=== PATIENT | female | born 1930 | race Caucasian/White ===

== ENCOUNTER 2017-01-16 17:02 | Emergency (ER) | payer MEDICARE ==
[~2017-01-16] VITALS: Ht 152.4 cm; Wt 65.0 kg
[2017-01-16 17:44] LABS: HEMATOCRIT 36.3 % (37.0-47.0); HEMOGLOBIN 11.8 g/dl (12.0-16.0); IMMATURE GRANULOCYTES 0.3 % (0.0-1.0); MEAN CELL VOLUME 93.1 fL CALC (80.0-100.0); MEAN CORPUSCULAR HGB 30.3 pG CALC (26.0-32.0); MEAN CORPUSCULAR HGB CONC 32.5 g/L CALC (32.0-36.0); NEUT# 4.08 thou/uL (2.00-7.15); RED BLOOD COUNT 3.9 mill/uL (4.20-5.60); RED CELL DISTRI WIDTH 14.2 % (11.5-15.5)
[2017-01-16 18:04] LABS: ALBUMIN 4.5 g/dL (3.2-5.0); ALKALINE PHOSPHATASE 96 u/l (38-126); ANION GAP 15 (6-22 (CALC)); BILIRUBIN, TOTAL 0.5 mg/dL (0.0-1.4); BUN 19 mg/dL (8-23); BUN/CREATININE RATIO 21 (12-20 (CALC)); CALCIUM 9.6 mg/dL (8.4-10.2); CARBON DIOXIDE 28 mmol/l (22-30); CHLORIDE 103 mmol/l (95-108); CREATININE 0.9 mg/dL (0.5-1.0); GFR 60 ML/MIN (>=60 (CALC)); GFR FOR AFR.AMER. > 60 ML/MIN (>=60 (CALC)); GLUCOSE 90 mg/dL (82-115); POTASSIUM 4.1 mmol/l (3.5-5.1); SGOT/AST 27 u/l (9-36); SGPT/ALT 29 u/l (11-66); SODIUM 141 mmol/l (137-146); TOTAL PROTEIN 7.7 g/dL (6.3-8.2)
[2017-01-16 18:16] LABS: MYOGLOBIN 73 ng/mL (0 - 62)
[2017-01-16 18:55] VITALS: BP 131/69
== END 2017-01-16 18:56 | disposition short-term general hospital (02) ==
LOC: ED 17:02
PROVIDERS: Emergency Medicine
DX: R07.9 Chest pain, unspecified (principal); I44.7 Left bundle-branch block, unspecified; J45.909 Unspecified asthma, uncomplicated; M19.90 Unspecified osteoarthritis, unspecified site
CPT/HCPCS: J1650; Q9967

== ENCOUNTER 2017-01-19 08:38 | Emergency (ER) | payer MEDICARE ==
[~2017-01-19] VITALS: Ht 152.4 cm; Wt 72.0 kg
[2017-01-19] MEDS ORDERED: LORTAB 1010 MG PO (11:23)
[2017-01-19 11:51] VITALS: BP 154/72
== END 2017-01-19 11:51 | disposition home or self-care (01) ==
LOC: ED 08:38
DX: M76.51 Patellar tendinitis, right knee (principal); M17.11 Unilateral primary osteoarthritis, right knee; M79.604 Pain in right leg; Z95.0 Presence of cardiac pacemaker

== ENCOUNTER 2017-01-24 12:01 | Emergency (ER) | payer MEDICARE ==
[~2017-01-24] VITALS: Ht 152.4 cm; Wt 64.8 kg
[~2017-01-24 12:01] MED LIST: LORTAB 1010 MG PO
[2017-01-24] MEDS ORDERED: XANAX0.5 MG PO (12:20)
[2017-01-24] MEDS ORDERED: SERTRALINE25 MG PO (12:20)
[2017-01-24] MEDS ORDERED: VITAMIN B-12500 MC2 PO (12:21)
[2017-01-24] MEDS ORDERED: PREDNISONE50 MG PO (12:45)
[2017-01-24] MEDS ORDERED: ZITHROMAX250 MG PO (12:45)
[2017-01-24 12:51] VITALS: BP 162/82
== END 2017-01-24 13:02 | disposition home or self-care (01) ==
LOC: ED 12:01
DX: J20.9 Acute bronchitis, unspecified (principal); R05 Cough; R06.2 Wheezing

== ENCOUNTER 2017-04-17 10:18 | Observation (INO) | payer MEDICARE ==
[~2017-04-17] VITALS: Ht 152.4 cm; Wt 65.8 kg
[~2017-04-17 10:18] MED LIST changes: +PREDNISONE50 MG PO; +SERTRALINE25 MG PO; +VITAMIN B-12500 MC2 PO; +XANAX0.5 MG PO; +ZITHROMAX250 MG PO
--- NOTE | 2017-04-17 10:20 | NUR ---
PATIENT BACK TO ROOM VIA WHEELCHAIR. EKG COMPLETED.
[2017-04-17] MEDS ORDERED: LISINOPRIL5 MG PO (10:47)
[2017-04-17] MEDS ORDERED: ADVAIR DISK1 IN (10:49)
[2017-04-17] MEDS ORDERED: PROAIR HFA108 MCG/AC IN (10:50)
[2017-04-17 11:21] LABS: HEMATOCRIT 36.6 % (37.0-47.0); IMMATURE GRANULOCYTES 0.3 % (0.0-1.0); MEAN CORPUSCULAR HGB 29.9 pG CALC (26.0-32.0); MEAN CORPUSCULAR HGB CONC 32.8 g/L CALC (32.0-36.0); NEUT# 3.24 thou/uL (2.00-7.15); RED BLOOD COUNT 4.02 mill/uL (4.20-5.60); RED CELL DISTRI WIDTH 14.4 % (11.5-15.5)
--- NOTE | 2017-04-17 11:24 | NUR ---
PATIENT MEDICATED WITH 324 MG OF ASPIRIN PER MD ORDER. TOLERATED WELL.
[2017-04-17 11:27] LABS: ALBUMIN 4.7 g/dL (3.2-5.0); ALKALINE PHOSPHATASE 108 u/l (38-126); AMYLASE 76 u/l (30-110); BILIRUBIN, TOTAL 0.8 mg/dL (0.0-1.4); BUN 14 mg/dL (8-23); BUN/CREATININE RATIO 18 (12-20 (CALC)); CARBON DIOXIDE 26 mmol/l (22-30); CHLORIDE 103 mmol/l (95-108); CREATININE 0.8 mg/dL (0.5-1.0); GFR > 60 ML/MIN (>=60 (CALC)); GFR FOR AFR.AMER. > 60 ML/MIN (>=60 (CALC)); LIPASE 75 u/l (23-300); SGOT/AST 34 u/l (9-36); SGPT/ALT 25 u/l (11-66); SODIUM 141 mmol/l (137-146); TOTAL PROTEIN 7.8 g/dL (6.3-8.2)
[2017-04-17 11:29] LABS: ANION GAP 16 (6-22 (CALC)); POTASSIUM 4.2 mmol/l (3.5-5.1)
[2017-04-17 11:40] LABS: MYOGLOBIN 63 ng/mL (0 - 62)
--- NOTE | 2017-04-17 12:15 | NUR ---
PATIENT AMBULATES TO BATHROOM, URINE SAMPLE COLLECTED. STANDBY ASSIST. PATIENT REPORTS CHEST PAIN 4/10 AT THIS TIME. CALL [facility] WITHIN REACH, WILL CONTINUE TO MONITOR.
[2017-04-17 12:37] LABS: URINE BILIRUBIN - DIPSTICK NEGATIVE (NEGATIVE); URINE COLOR YELLOW; URINE GLUCOSE - DIPSTICK NEGATIVE (NEGATIVE); URINE KETONE NEGATIVE (NEGATIVE); URINE LEUK ESTERASE NEGATIVE (NEGATIVE); URINE NITRITE - DIPSTICK NEGATIVE (Negative); URINE PH 6.5 (4.5-8.0); URINE PROTEIN - DIPSTICK NEGATIVE (NEG-TRACE); URINE SPECIFIC GRAVITY <=1.005; URINE UROBILINOGEN - DIPSTICK 0.2 E.U./dL (0.2)
[2017-04-17 12:41] LABS: URINE BLOOD DIPSTICK TRACE (NEGATIVE); URINE CLARITY CLEAR
--- NOTE | 2017-04-17 13:30 | NUR ---
PATIENT RESTING ON STRETCHER IN STABLE CONDITION WATCHING TV. CALL LIGHT WITHIN REACH. WILL CONTINUE TO MONITOR.
--- NOTE | 2017-04-17 14:35 | NUR ---
PATIENT RETURNS FROM CT SCAN IN STABLE CONDITION. WAITING RESULTS. WILL CONTINUE TO MONITOR.
--- NOTE | 2017-04-17 15:05 | NUR ---
MD AT BEDSIDE TO DISCUSS RESULTS.
--- NOTE | 2017-04-17 15:33 | NUR ---
SBAR PRINTED TO FLOOR
--- NOTE | 2017-04-17 15:50 | NUR ---
ATTEMPT MADE TO CALL REPORT, SPOKE TO TONI. STATES "[facility] WILL CALL YOU BACK."
--- NOTE | 2017-04-17 16:00 | NUR ---
REPORT CALLED TO LINDSEY CORREIA.
--- NOTE | 2017-04-17 16:03 | NUR ---
Patient feels very good. He denied having any side effects pertaining to his medications. c
--- NOTE | 2017-04-17 16:08 | NUR ---
PT.ARRIVED TO FLOOR. PT.SELF AMBULATED TO RESTROOM, STANDING SCALE AND BED. V/S ASSESSED AND PT.ORIENTED TO ROOM,CALL SYSTEM,LIGHTS, BED AND TV. PT.APPEARS TO BE STABLE AT THIS TIME. NO S/S OF DISTRESS NOTED.
--- NOTE | 2017-04-17 16:10 | NUR ---
PATIENT TRANSPORTED TO [facility] WITH TELE VIA WHEELCHAIR. BEDSIDE REPORT GIVEN TO LINDSEY CORREIA. CARE RELINQUISHED,
[2017-04-17 16:20] VITALS: BP 175/87
--- NOTE | 2017-04-17 17:13 | NUR ---
PT.ASSESSED, NEG ASSESSMENT OTHER THAN C/O EPI-GASTRIC AREA PAIN WHEN DEEP BREATHING 06/26. LUNG SOUNDS ARE CLEAR. PT.REPORTS A HARD AREA IN BACK OF RIGHT LEG ON SUN AND SWELLING TO RIGHT LEG. RIGHT LEG APPEARS SOFT, NO REDNESS TO AREA AT THIS TIME AND NO EDEMA TO LEG OR FOOT. PT.LOCX4 AND SELF AMBULATES. DENIES ANY DIZZINESS/N/V. DENIES HISTORY OF FALLS. REPORTS SHE HAS HAD PNEUMONIA AND FLU VACCINES. PT.IS ASKING ABOUT SUPPER, REFUSES SANDWICH AT THIS TIME, BUT STATES THAT SHE IS HUNGRY AND "DEFINATELY WANTS A SUPPER TRAY."
[2017-04-17 17:28] VITALS: BP 168/85
--- NOTE | 2017-04-17 18:35 | NUR ---
MEDICATED PT.FOR B/P. PT.IS UPRIGHT IN RECLINER VISITING WITH HER SECONDARY MARKET MANAGER. DENIES ANY OTHER NEEDS AT THIS TIME. CALL LIGHT W/IN REACH
[2017-04-17 19:15] VITALS: BP 163/89
--- NOTE | 2017-04-17 20:20 | NUR ---
PT SITTING IN BED, NO SIGNS OF DISTRESS NOTED, RESP EVEN AND UNLABORED. ALERT AND ORIENTED X3, NO EDEMA. TELE, IV SL FLUSHED WELL. PT WAS GIVEN XANAX FOR ANXIETY, BP RECHECKED NOW AT 140/75. VOICES NO NEEDS OR COMPLAINTS. ASSESSMENT COMPLETED CALL LIGHT IN REACH.CONTINUE TO MONITOR.
[2017-04-17 20:21] VITALS: BP 140/75
--- NOTE | 2017-04-18 | NUR ---
TROPONIN OBTAINED BY TECHNICAL ACCOUNT REPRESENTATIVE, PT VOICES NO NEEDS OR COMPLAINTS AT THIS TIME. CALL LIGHT IN REACH,CONTINUE TO MONITOR.
[2017-04-18 00:32] VITALS: BP 115/58
[2017-04-18 04:15] VITALS: BP 136/75
--- NOTE | 2017-04-18 06:08 | NUR ---
PT RESTING IN BED, WITH EYES CLOSED, NO SIGNS OF DISTRESS NOTED. RESP EVEN AND UNLABORED. CALL LIGHT IN REACH,CONTINUE TO MONITOR.
--- NOTE | 2017-04-18 07:00 | NUR ---
SHIFT CHANGE REPORT FROM ROXANA PETERS AWAKE ALERT AND ORIENTED SITTING UP IN RECLINER, NO C/O DISCOMFORT, TELE MONITOR IN PLACE, CALL [facility] IN REACH.
[2017-04-18 08:30] VITALS: BP 137/82
--- NOTE | 2017-04-18 09:40 | NUR ---
PT SITTING IN CHAIR AT [facility]. DENIES PAIN. REPORTING OF CONCERNS ENCOURAGED. PLAN OF CARE DISCUSSED. CALL LIGHT REVIEWED AND IN REACH. PT AMBULATED IN ROOM, WITH STEADY GAIT. TOLERATING ACTIVITY WELL. PT REPORTS UNDERSTANDING OF ALL INFORMATION DISCUSSED.
--- NOTE | 2017-04-18 10:31 | NUR ---
AMBULATING IN ROOM AT THIS TIME, C/O MILD MID-STERNAL PAIN THAT IS AGGRAVATED BY DEEP BREATHING, WILL CONTINUE TO MONITOR.
[2017-04-18 11:54] VITALS: BP 143/78
[2017-04-18] MEDS ORDERED: METOPROL TAR25 MG PO (15:13)
[2017-04-18] MEDS ORDERED: ISOSORB MONO30 MG PO (15:13)
[2017-04-18] MEDS ORDERED: ASPIRIN ADULT L81 M3 PO (15:13)
[2017-04-18] MEDS ORDERED: LASIX 40 MG TAB40 MG PO (15:13)
== END 2017-04-18 16:00 | disposition home or self-care (01) ==
LOC: ED 10:18 → ED-I 15:08 → ED 15:35 → MS2 15:36
PROVIDERS: Emergency Medicine; ADMIT Internal Medicine; ATTEND Internal Medicine
DX: R07.9 Chest pain, unspecified (principal); I11.0 Hypertensive heart disease with heart failure; I50.31 Acute diastolic (congestive) heart failure; J45.909 Unspecified asthma, uncomplicated; M19.90 Unspecified osteoarthritis, unspecified site; F41.9 Anxiety disorder, unspecified; F32.9 Major depressive disorder, single episode, unspecified; Z95.0 Presence of cardiac pacemaker; R06.00 Dyspnea, unspecified
CPT/HCPCS: Q9967

== ENCOUNTER 2017-08-29 11:58 | Inpatient (IN) | payer MEDICARE ==
[~2017-08-29] VITALS: Ht 152.4 cm; Wt 64.2 kg
[~2017-08-29 11:58] MED LIST changes: +ADVAIR DISK1 IN; +ASPIRIN ADULT L81 M3 PO; +ISOSORB MONO30 MG PO; +LASIX 40 MG TAB40 MG PO; +LISINOPRIL5 MG PO; +METOPROL TAR25 MG PO; +PROAIR HFA108 MCG/AC IN; -VITAMIN B-12500 MC2 PO; +VITAMIN D-31000 UNI1 PO
--- NOTE | 2017-08-29 12:15 | NUR ---
DIRECT ADMIT VIA WHEELCHAIR. AMBULATED TO BED WITH UNSTEAY GAIT USING CANE. RESPS EVEN AND UNLABORED ON ROOM AIR. SKIN INTACT. ORIENTED TO ROOM AND CALL SYSTEM. SAFETY PRECAUTIONS REINFORCED. BED IN LOWEST POSITION WITH WHEELS LOCKED. CALL LIGHT WITHIN REACH. ENCOURAGED PT TO CALL FOR ANY NEEDS.
[2017-08-29 12:25] VITALS: BP 135/76
[2017-08-29 12:42] LABS: HEMATOCRIT 35.1 % (37.0-47.0); HEMOGLOBIN 11.5 g/dl (12.0-16.0); IMMATURE GRANULOCYTES 0.3 % (0.0-1.0); MEAN CORPUSCULAR HGB 29.5 pG CALC (26.0-32.0); MEAN CORPUSCULAR HGB CONC 32.8 g/L CALC (32.0-36.0); RED BLOOD COUNT 3.9 mill/uL (4.20-5.60); RED CELL DISTRI WIDTH 14.7 % (11.5-15.5)
[2017-08-29 13:01] LABS: URINE BILIRUBIN - DIPSTICK NEGATIVE (NEGATIVE); URINE BLOOD DIPSTICK SMALL (NEGATIVE); URINE COLOR YELLOW; URINE GLUCOSE - DIPSTICK NEGATIVE (NEGATIVE); URINE KETONE NEGATIVE (NEGATIVE); URINE LEUK ESTERASE NEGATIVE (NEGATIVE); URINE NITRITE - DIPSTICK NEGATIVE (Negative); URINE PROTEIN - DIPSTICK NEGATIVE (NEG-TRACE); URINE SPECIFIC GRAVITY <=1.005; URINE UROBILINOGEN - DIPSTICK 0.2 E.U./dL (0.2)
[2017-08-29 13:06] LABS: ANION GAP 12 (6-22 (CALC)); BUN 17 mg/dL (8-23); BUN/CREATININE RATIO 22 (12-20 (CALC)); CARBON DIOXIDE 31 mmol/l (22-30); CHLORIDE 99 mmol/l (95-108); CREATININE 0.8 mg/dL (0.5-1.0); GFR > 60 ML/MIN (>=60 (CALC)); GFR FOR AFR.AMER. > 60 ML/MIN (>=60 (CALC)); POTASSIUM 4.8 mmol/l (3.5-5.1); SODIUM 137 mmol/l (137-146)
[2017-08-29 13:07] LABS: URINE CLARITY CLEAR
[2017-08-29 13:16] LABS: URINE SQUAMOUS EPITHELIAL CELL FEW EPI/hpf (0-FEW); URINE WBC 0-2 WBC/hpf (0-5)
--- NOTE | 2017-08-29 13:50 | NUR ---
TO CT IN STABLE CONDITION VIA WHEELCHAIR ACCOMPANIED BY TONI AREA FIELD WORKER.
--- NOTE | 2017-08-29 14:15 | NUR ---
FROM CT VIA WHEELCHAIR, ASSISTED TO BED WITHOUT DIFFICULTY. CALL LIGHT WITHIN REACH. WILL CONTINUE TO MONITOR.
[2017-08-29 15:47] VITALS: BP 138/75
[2017-08-29] MEDS ORDERED: ATIVAN1 M1 PO (15:48)
[2017-08-29] MEDS ORDERED: BL GAS RELIE125 MG PO (15:51)
[2017-08-29] MEDS ORDERED: ACETAMINOPHEN500 MG PO (15:54)
[2017-08-29] MEDS ORDERED: BENADRYL 25MG C25 MG PO (16:01)
--- NOTE | 2017-08-29 17:25 | NUR ---
DR AMAYA AT BEDSIDE, AWAITING NEW ORDERS.
[2017-08-29 19:17] VITALS: BP 142/80
--- NOTE | 2017-08-29 20:00 | NUR ---
BEDSIDE REPORT RECEIVED FROM LINDSEY GORE. PT SITTING UP IN BEDSIDE CHAIR; ALERT AND ORIENTED. STATES THAT SHE ONLY HAS PAIN WHEN SHE IS AMBULATING THAT STARTS IN HER GROIN AND RADIATES TO RIGHT HIP; CURRENTLY AT REST SHE DOES NOT HAVE ANY PAIN. RESPIRATIONS EVEN AND UNLABORED ON ROOM AIR. PLAN OF CARE DISCUSSED. PT ENCOURAGED TO VERBALZIE CONCERNS. STATES UNDERSTANDING AND REQUESTS ATIVAN AT HS FOR SLEEP AND STATES THAT SHE ONLY TAKES VENTOLIN FOR EMERGENCIES AND WANTS HER ADVAIR INHALER SCHEDULED INSTEAD. NEW ORDERS OBTAINED FROM DR. AMAYA REGARDING THESE REQUESTS. SAFETY MEASURES IN PLACE. CALL LIGHT WITHIN REACH.
--- NOTE | 2017-08-29 23:43 | NUR ---
PT RESTING IN BED WITH EYES CLOSED; AWAKENS TO VERBAL STIUMLI. ATIVAN AND MORPHINE GIVEN AT HS FOR SEVERE PELVIC PAIN AFTER AMBULATING TO BATHROOM. IV FLUIDS INFUSING WITHOUT DIFFICUTLY; IV SITE APPEARS HEALTHY. NO REQUESTS OR CONCERNS AT THIS TIME. SAFETY MEASURES IN PLACE. CALL LIGHT WITHIN REACH.
--- NOTE | 2017-08-30 04:18 | NUR ---
PT ASLEEP AT THIS TIME WITH NO SIGNS OF DISTRESS. RESPIRATIONS EVEN AND UNLABORED ON ROOM AIR. PT UP TO BSC WITH ONE PERSON ASSIST; PAIN WITH MOVEMENT, HOWEVER PT DID NOT WANT STRONG PAIN MEDICATION AT THAT TIME. NO ACUTE CHANGES IN CONDITION THROUGHOUT THE NIGHT. SAFETY MEASURES IN PLACE. CALL LIGHT WITHIN REACH.
[2017-08-30 05:00] VITALS: BP 161/97
--- NOTE | 2017-08-30 07:00 | NUR ---
RECEIVED BEDSIDE REPORT FROM SUAD PORTILLO. RESTING IN SUPINE POSITION WITH EYES CLSOED, AWAKEN SEASILY. RESPS EVEN AND UNLABORED ON ROOM AIR. #22 LH INFUSING WITHIUT DIFFICULTY, SITE APPEARS HEALTHY. VOICES NO NEEDS AT THIS TIME. PLAN OF CARE DISCUSSED. SAFETY PRECAUTIONS REINFORCED. BED IN LOWEST POSITION WITH WHEELS LOCKED. CALL LIGHT WITHIN REACH. ENCOURAGED PT TO CALL FOR ANY NEEDS.
[2017-08-30 07:58] VITALS: BP 163/76
--- NOTE | 2017-08-30 09:15 | NUR ---
DR AMAYA AT BEDSIDE, NEW ORDERS RECEIVED.
--- NOTE | 2017-08-30 11:00 | NUR ---
PHONE CALL TO DR AMAYA, NEW ORDERS RECEIVED.
--- NOTE | 2017-08-30 11:45 | NUR ---
SITTING IN BEDSIDE CHAIR, RESPS EVEN AND UNLABORED ON ROOM AIR. #22 LH INFUSING WITHOUT DIFFICULTY, SITE APPEARS HEALTHY. MEDICATED WITH LORTAB PO FOR C/O RIGHT HIP PAIN. PO FLUIDS OFFERED. CALL LIGHT WITHIN REACH. WILL CONTINUE TO MONITOR.
[2017-08-30 16:37] VITALS: BP 152/72
--- NOTE | 2017-08-30 16:50 | NUR ---
IN HIGH FOWLERS. RESPS EVEN AND UNLABORED ON ROOM AIR. MEDICATED WITH LORTAB PO FOR C/O 5/10 RIGHT HIP PAIN. KPAD TO RIGHT HIP. CALL LIGHT WITHIN REACH. WILL CONTINUE TO MONITOR.
--- NOTE | 2017-08-30 19:27 | NUR ---
SITTING IN BEDSIDE CHAIR, RESPS EVEN AND UNLABORED ON ROOM AIR. #22 LH INFUSING WITHOUT DIFFICULTY, SITE APPEARS HEALTHY. MEDICATED WITH LORTAB PO FOR C/O 5/10 RIGHT HIP PAIN. CALL LIGHT WITHIN REACH. WILL CONTINUE TO MONITOR.
[2017-08-30 19:30] VITALS: BP 154/55
--- NOTE | 2017-08-30 20:00 | NUR ---
BEDSIDE REPORT RECEIVED FROM LINDSEY GORE. PT RESTING IN BED SEMI FOWLERS; ALERT AND ORIENTED. C/O MODERATE PAIN TO PELVIC/GROIN AREA. RESPIRATIONS EVEN AND UNLABORED ON ROOM AIR. PLAN OF CARE REVIEWED. PT VERBALIZES CONCERNS ABOUT GOING TO THE REHAB WHEN SHE IS NOT SURE EXACTLY WHAT IS CAUSING HER PAIN. SOME CONCERNS ADDRESSED AND QUESTIONS ANSWERED; ENCOURAGED TO SPEAK WITH DR. AMAYA IN THE MORNING REGARDING OVERALL PLAN. SAFETY MEASURES IN PLACE. CALL LIGHT WITHIN REACH.
--- NOTE | 2017-08-31 00:12 | NUR ---
PT ASLEEP AT THIS TIME WITH NO SIGNS OF DISTRESS. RESPIRATIONS EVEN AND UNLABORED ON ROOM AIR. STATED EARLIER IN SHIFT THAT SHE DOES NOT WANT TO BE AWAKENED FOR MIDNIGHT DUONEB. IV FLUIDS INFUSING WITHOUT DIFFICULTY; IV SITE APPEARS HEALTHY. SAFETY MEASURES IN PLACE. CALL LIGHT WITHIN REACH.
--- NOTE | 2017-08-31 04:23 | NUR ---
PT ASLEEP AT THIS TIME WITH NO SIGNS OF DISTRESS. RESPIRATIONS EVEN AND UNLABORED ON ROOM AIR. NO ACUTE CHANGES IN CONDITION THROUGHOUT THE NIGHT. SAFETY MEASURES IN PLACE. CALL LIGHT WITHIN REACH.
[2017-08-31 06:26] VITALS: BP 140/70
--- NOTE | 2017-08-31 07:01 | NUR ---
BEDSIDE REPORT RECEIVED BY CARMELO. PT IS SLEEPING WITH NO S/S OF DISTRESS NOTED. CALL LIGHT IN REACH.
[2017-08-31 07:33] VITALS: BP 143/71
--- NOTE | 2017-08-31 08:05 | NUR ---
ASSESSMENT DONE . RESPS EVEN AND UNLABORED. HEATING PAD APPLIED TO LOWER BACK .NS 60ML/HR INFUSING WELL. SAFETY PRECAUTIONS REINFORCED AND CALL LIGHT IN REACH.
[2017-08-31 09:14] LABS: HEMATOCRIT 33.4 % (37.0-47.0); HEMOGLOBIN 10.7 g/dl (12.0-16.0); IMMATURE GRANULOCYTES 0.6 % (0.0-1.0); MEAN CORPUSCULAR HGB 29.2 pG CALC (26.0-32.0); NEUT# 4.24 thou/uL (2.00-7.15); RED BLOOD COUNT 3.67 mill/uL (4.20-5.60)
[2017-08-31 09:19] LABS: ANION GAP 11 (6-22 (CALC)); BUN 14 mg/dL (8-23); BUN/CREATININE RATIO 20 (12-20 (CALC)); CARBON DIOXIDE 26 mmol/l (22-30); CHLORIDE 106 mmol/l (95-108); CREATININE 0.7 mg/dL (0.5-1.0); GFR > 60 ML/MIN (>=60 (CALC)); GFR FOR AFR.AMER. > 60 ML/MIN (>=60 (CALC)); POTASSIUM 3.9 mmol/l (3.5-5.1); SODIUM 140 mmol/l (137-146)
--- NOTE | 2017-08-31 12:00 | NUR ---
PT IS SITTING IN RECLINER EATING HER LUNCH WITH NO S/S OF DISTRESS NOTED. PT DENIES NEEDS AT THIS TIME. CALL LIGHT IN REACH.
--- NOTE | 2017-08-31 16:00 | NUR ---
PT IS RESTING IN BED WITH NO S/S OF DISTRESS NOTED. PT DENIES NEEDS AT THIS TIME. CALL LIGHT IN REACH.
[2017-08-31 17:21] VITALS: BP 157/65
--- NOTE | 2017-08-31 18:35 | NUR ---
Discharge instructions given. Patient verbalizes understanding of same. Discharged in stable condition via Wheelchair to [facility] with staff. All belongings sent with pt. REPORT GIVEN TO THEA DAVILA.
== END 2017-08-31 18:48 | DRG 556 ==
LOC: MS2 11:58
PROVIDERS: ADMIT Internal Medicine Geriatric Medicine; ATTEND Internal Medicine Geriatric Medicine
DX: M25.551 Pain in right hip (principal); I10 Essential (primary) hypertension; J44.9 Chronic obstructive pulmonary disease, unspecified; M19.90 Unspecified osteoarthritis, unspecified site; W11.XXXA Fall on and from ladder, initial encounter; Z95.0 Presence of cardiac pacemaker; Z60.2 Problems related to living alone

== ENCOUNTER 2017-11-06 09:25 | Emergency (ER) | payer MEDICARE ==
[~2017-11-06] VITALS: Ht 152.4 cm; Wt 65.0 kg
[~2017-11-06 09:25] MED LIST changes: +ACETAMINOPHEN500 MG PO; +ATIVAN1 M1 PO; +BENADRYL 25MG C25 MG PO; +BL GAS RELIE125 MG PO
[2017-11-06 10:46] VITALS: BP 147/78
== END 2017-11-06 10:54 | disposition home or self-care (01) ==
LOC: ED 09:25
DX: S60.419A Abrasion of unspecified finger, initial encounter (principal); M19.90 Unspecified osteoarthritis, unspecified site; I10 Essential (primary) hypertension; J45.909 Unspecified asthma, uncomplicated; W01.0XXA Fall on same level from slipping, tripping and stumbling without subsequent striking against object, initial encounter; Y92.481 Parking lot as the place of occurrence of the external cause; Y93.89 Activity, other specified; Z95.0 Presence of cardiac pacemaker

== ENCOUNTER → 2018-05-20 | Outpatient (REF) | payer MEDICARE ==
[~2018-05-20] MED LIST changes: +ALL DAY10 MG PO; +LISINOPRIL10 MG PO; +MEDDOSEPAK PO
[2018-05-20 08:40] LABS: HEMATOCRIT 36.5 % (37.0-47.0); HEMOGLOBIN 11.9 g/dl (12.0-16.0); IMMATURE GRANULOCYTES 0.2 % (0.0-5.0); MEAN CELL VOLUME 93.4 fL CALC (80.0-100.0); MEAN CORPUSCULAR HGB 30.4 pG CALC (26.0-32.0); MEAN CORPUSCULAR HGB CONC 32.6 g/L CALC (32.0-36.0); NEUT# 2.74 thou/uL (2.00-7.15); RED BLOOD COUNT 3.91 mill/uL (4.20-5.60); RED CELL DISTRI WIDTH 14.1 % (11.5-15.5); URINE BILIRUBIN - DIPSTICK NEGATIVE (NEGATIVE); URINE BLOOD DIPSTICK TRACE-LYSED (NEGATIVE); URINE COLOR YELLOW; URINE GLUCOSE - DIPSTICK NEGATIVE (NEGATIVE); URINE KETONE NEGATIVE (NEGATIVE); URINE LEUK ESTERASE NEGATIVE (Negative); URINE NITRITE - DIPSTICK NEGATIVE (Negative); URINE PH 6.5 (4.5-8.0); URINE PROTEIN - DIPSTICK NEGATIVE (NEG-TRACE); URINE SPECIFIC GRAVITY 1.015; URINE UROBILINOGEN - DIPSTICK 0.2 E.U./dL (0.2)
[2018-05-20 08:41] LABS: URINE CLARITY CLEAR
[2018-05-20 08:54] LABS: ALKALINE PHOSPHATASE 91 u/l (38-126); ANION GAP 12 (6-22 (CALC)); BILIRUBIN, TOTAL 0.6 mg/dL (0.0-1.4); BUN 19 mg/dL (8-23); BUN/CREATININE RATIO 19 (12-20 (CALC)); CALCULATED LDLCHOLESTEROL 106 mg/dL (62-129 (CALC)); CARBON DIOXIDE 29 mmol/l (22-30); CHLORIDE 102 mmol/l (95-108); CHOLESTEROL HDL RATIO 3.1 (<4.4 (CALC)); GFR 53 ML/MIN (>=60 (CALC)); GFR FOR AFR.AMER. > 60 ML/MIN (>=60 (CALC)); HDL CHOLESTEROL 59 mg/dL (>=40); POTASSIUM 4.5 mmol/l (3.5-5.1); SGOT/AST 32 u/l (9-36); SODIUM 139 mmol/l (137-146); TOTAL CHOLESTEROL 184 mg/dl (0-199); TOTAL PROTEIN 6.8 g/dL (6.3-8.2); TOTAL TRIGLYCERIDES 93 mg/dl (30-149); VLDL CHOLESTROL 19 mg/dl (0-48 (CALC))
== END | disposition home or self-care (01) ==
LOC: CT 07:42
PROVIDERS: Internal Medicine; ATTEND Internal Medicine Nephrology
DX: I16.0 Hypertensive urgency (principal); I10 Essential (primary) hypertension; E78.49 Other hyperlipidemia; E03.9 Hypothyroidism, unspecified; R53.83 Other fatigue; I50.22 Chronic systolic (congestive) heart failure; E11.65 Type 2 diabetes mellitus with hyperglycemia; M06.4 Inflammatory polyarthropathy; E55.9 Vitamin D deficiency, unspecified; N18.3 Chronic kidney disease, stage 3 (moderate); D63.1 Anemia in chronic kidney disease; N25.81 Secondary hyperparathyroidism of renal origin
CPT/HCPCS: Q9967

== ENCOUNTER 2021-04-19 12:46 | Emergency (ER) | payer MEDICARE ==
[~2021-04-19] VITALS: Ht 152.4 cm; Wt 72.0 kg
[2021-04-19 22:20] VITALS: BP 174/80
== END 2021-04-19 22:25 ==
LOC: ED 12:46
PROC: 2W3CX1Z Immobilization of Right Lower Arm using Splint (ICD-10-PCS; principal; 2021-04-19)
DX: S52.501A Unspecified fracture of the lower end of right radius, initial encounter for closed fracture (principal); I10 Essential (primary) hypertension; J45.909 Unspecified asthma, uncomplicated; W01.0XXA Fall on same level from slipping, tripping and stumbling without subsequent striking against object, initial encounter; Y92.009 Unspecified place in unspecified non-institutional (private) residence as the place of occurrence of the external cause; Z95.0 Presence of cardiac pacemaker; Z20.822 Contact with and (suspected) exposure to COVID-19